=== PATIENT | male | born 1955 | race Caucasian/White ===

== ENCOUNTER 2020-05-21 13:22 | Outpatient (CLI) | payer OTHER, SELFPAY ==
--- NOTE | ~2020-05-21 | CT_ITS ---
EXAMINATION: CT lung screening EXAM DATE: 05/21/2020 13:59 INDICATION: Personal history of nicotine dependence. TECHNIQUE: Spiral low dose CT of the chest without contrast. Axial, coronal and sagittal images were reviewed. The dose-length product (DLP) for this examination was 100.51 mGy-cm. The exposure was t ailored according to patient size (auto mA exposure control), and iterative reconstruction (ASIR) was used as additional dose reduction technique. Comparison is made to prior examination from 04/22/2019 . FINDINGS: Apical reticulonodular opacities are unchanged consistent with postinfectious residua. No suspicious pulmonary nodules. Mild emphysema. Tracheobronchial tree is patent. There is no mediast inal, hilar or axillary lymphadenopathy. There are no pleural or pericardial effusions. There is no pneumothorax. Heart normal in size. No evidence of coronary arterial calcification. Upper abdo men is unremarkable. Subacute right 5th-8th rib fractures laterally. IMPRESSION: Lung-RADS category 2, benign appearance or behavior (<1% chance of malignancy); recommend continued LDCT screening in 1 year. Reviewed, dictated and finalized at location A. ENISHMENT MERCHANDISING ASSOCIATE
== END 2020-05-21 13:23 | disposition home or self-care (01) ==
PROVIDERS: PCP Family Medicine; Visit Provider Physician Assistant
DX: Z12.2 Encounter for screening for malignant neoplasm of respiratory organs (principal); Z87.891 Personal history of nicotine dependence
CPT/HCPCS: G0297

== ENCOUNTER 2022-06-01 07:14 | Outpatient (CLI) | payer MEDICARE, SELFPAY ==
--- NOTE | ~2022-06-01 | US_ITS ---
EXAMINATION: US aorta [facility] DATE: 06/01/2022 10:04 CIVIL ENGINEERING SPECIALIST INDICATION: Abdominal aortic aneurysm screening TECHNIQUE: Grayscale, color Doppler, and pulsed Doppler images of the aorta and common iliac arteries were obtained. COMPARISON: None. FINDINGS: The proximal aorta measures 2.6 cm greatest sagittal dimension. The mid aorta measures 2.2 cm greates t sagittal dimension. The distal aorta measures 2.4 cm greatest sagittal dimension. The right common internal iliac artery measures 1.2 cm. The left common iliac artery measures 1.1 cm. There is mild at herosclerosis. IMPRESSION: 1. Mild atherosclerosis of the aorta without evidence for aneurysm. Reviewed, dictated and finalized at location A. L ENGINEERING SPECIALIST
== END 2022-06-01 07:15 | disposition home or self-care (01) ==
PROVIDERS: PCP Family Medicine; Visit Provider Family Medicine
DX: Z13.6 Encounter for screening for cardiovascular disorders (principal); I70.0 Atherosclerosis of aorta
CPT/HCPCS: 76706

== ENCOUNTER 2022-06-26 12:33 | Emergency (ER) | payer MEDICARE, SELFPAY ==
--- NOTE | ~2022-06-26 | CT_ITS ---
EXAMINATION: CT brain wo con DATE: 06/26/2022 14:27 INDICATION: fall, HI . TECHNIQUE: Computed tomography (CT) of the head was performed as 6 intravenous contrast. The mA was a djusted according to patient size. Iterative reconstruction technique was employed. The dose-length p roduct was 605.33 mGy-cm. COMPARISON: None. FINDINGS: No acute intracranial hemorrhage or extra-axial fluid collection. No hydrocephalus, mass, or herniation. No acute ischemic infarct. Unremarkable dural venous sinus attenuation. No acute osseous abnormality. Right lateral scalp swelling including a large hematoma involving the r ight pinna with laceration. The aerated spaces are clear. IMPRESSION: No acute intracranial process. Right lateral scalp swelling, including a large right pinna hematoma a nd laceration. Reviewed, dictated and finalized at location K. EQUIPMENT SERVICE TECHNICIAN IMPRESSION: No acute intracranial process. Right lateral scalp swelling, including a large right pinna hematoma and laceration.
--- NOTE | ~2022-06-26 | CT_ITS ---
EXAMINATION: CT cervical spine wo con DATE: 06/26/2022 14:27 INDICATION: fall, HI TECHNIQUE: Computed tomography (CT) of the cervical spine was performed without intravenous contrast. Automated exposure control and iterative reconstruction technique were employed. The dose-length pro duct was 407.70 mGy-cm. COMPARISON: None. FINDINGS: Vertebral Body Alignment: Intact. . Craniocervical and atlantoaxial alignment: Moderate degenerative change. Alignment intact. Osseous structures/fracture: No evidence of a lytic or blastic process in the visualized spine. No e vidence of acute fracture. Small left mastoid effusion, with adjacent osseous sclerosis. No sign of t emporal bone fracture, no osseous erosion. Cervical soft tissues: The paraspinal soft tissues planes are maintained. Bilateral nodular apical pl eural scarring Degenerative changes: Multilevel moderate degenerative disc disease and facet arthropathy. Multilevel severe bilateral neural foraminal narrowing. Moderate central canal narrowing at C4-5. IMPRESSION: No acute fracture or traumatic malalignment in the cervical spine Reviewed, dictated and finalized at location K. RPRISE SYSTEMS ENGINEER
[2022-06-26 13:01] VITALS: BP 174/78; PULSE 100; RESP 18; TEMP 36.8; O2SAT 99
--- NOTE | 2022-06-26 14:56 | ECG_ITS ---
Measurements Intervals [place] Rate: 99 P: 83 PA: 130 QRS: 42 QRSD: 106 T: 80 QT: 364 QTc: 468 Interpretive Statements SINUS RHYTHM BASELINE ARTIFACT POSSIBLE LEFT ATRIAL ENLARGEMENT BORDERLINE ECG NO PREVIOUS ECG AVAILABLE FOR COMPARISON Electronically Signed On 06-27-2022 16:42:59 POWER OPERATOR by Morris Peter M.D.
--- NOTE | 2022-06-26 14:57 | ED.HEATRA ---
HPI - Head Injury General Chief complaint: Head Injury <REHAN Faith Last Filed: 06/26/22 19:54> Stated complaint: fall, head trauma <REHAN Faith Last Filed: 06/26/22 19:54> Time Seen by Provider: 06/26/22 13:13 <REHAN Faith Last Filed: 06/26/22 19:54> Source: patient and family <REHAN Faith Last Filed: 06/26/22 19:54> Mode of arrival: ambulatory <REHAN Faith Last Filed: 06/26/22 19:54> Limitations: no limitations <REHAN Faith Last Filed: 06/26/22 19:54> History of Present Illness HPI Narrative: Patient is a 66-year-old male who presents to the ED with report of a fall with head injury. Patient reports he fell last night and hit the right side of his head on the ground. He does not remember falling and does not know if he lost consciousness. He thinks he may have tripped on a electric cord. He does not remember feeling dizzy or lightheaded. Daughter at bedside reports when they came home last night, they found the patient on the ground. It is unclear how long he had been on the ground. They saw the electric space heater had been tipped over, which made him think he may have tripped. Daughter reported patient was able to ambulate normally and was coherent by the time they found him. He did require assistance getting off the ground. Patient admits to drinking ETOH last night. He is a daily 8-10 beer drinker. Patient has since developed swelling to his R ear. He states he otherwise feels fine currently. Denies current dizziness, lightheadedness, vision changes, hearing changes, chest pain, difficulty breathing. Denies neck pain or back pain. <REHAN Faith Last Filed: 06/26/22 19:54> Related Data Home medications: Home Medications Medication Instructions Recorded Confirmed omeprazole 20 mg capsule,delayed 20 mg PO DAILY 05/25/22 06/28/22 release <Amanda Ivey PA-C - Last Filed: 06/26/22 19:54> Allergies/Adverse reactions: Allergies Allergy/AdvReac Type Severity Reaction Status Date / Time No Known Allergies Allergy Verified 06/28/22 10:23 <Amanda Ivey PA-C - Last Filed: 06/26/22 19:54> Review of Systems Review of Systems: CONSTITUTIONAL: Denies fever, chills, or sweats. EYES: Denies visual changes. ENT: Reports swelling to R ear. Denies hearing changes. CARDIOVASCULAR: Denies chest pain. RESPIRATORY: Denies dyspnea. GASTROINTESTINAL: Denies abdominal pain, nausea, vomiting, or diarrhea. GENITOURINARY: Denies dysuria or hematuria. MUSCULOSKELETAL: Denies back pain, neck pain. NEUROLOGIC: Reports HI. Denies dizziness, lightheadedness, headache, numbness, or weakness. <Amanda Ivey PA-C - Last Filed: 06/26/22 19:54> All systems reviewed & are unremarkable except as noted in HPI and below <Amanda Ivey PA-C - Last Filed: 06/26/22 19:54> PMFSH Past Medical History Medical History: Medical History Bladder wall thickening Bladder wall thickening H/O poliomyelitis <Amanda Ivey PA-C - Last Filed: 06/26/22 19:54> Surgical History Surgical History: Surgical History (Updated 06/26/22 @ 15:50 by Amanda Ivey PA-C) No pertinent past surgical history <Amanda Ivey PA-C - Last Filed: 06/26/22 19:54> Family History Family History: Family History Mother Diabetes mellitus <Amanda Ivey PA-C - Last Filed: 06/26/22 19:54> Social History Social History: Social History (Updated 06/26/22 @ 19:32 by Amanda Ivey PA-C) Smoking packs per day: 1 Smoking cigarettes per day: 20.0 Years smoked: 42 Smoking pack-years: 42.00 Smoking status: Former smoker Tobacco type: e-cigarettes/vaping Smoking end date: 07/03/12 Alcohol i
[2022-06-26 15:18] LABS: Basophils Percent Auto 0.2 % (0.2-1.2); Hemoglobin 11.4 g/dL (14.0-18.0); Immature Granulocyte Absolute 0.03 K/mm3 (0.00-0.031); Immature Granulocyte Percent A 0.3 % (0-0.5); Lymphocytes Absolute Auto 0.35 K/mm3 (0.9-3.2); Lymphocytes Percent Auto 3.9 % (18.3-44.2); Mean Corpuscular HGB Conc 35.6 g/dl (32-36); Mean Corpuscular Volume 81.4 fl (80-100); Monocytes Percent Auto 11.4 % (2.6-8.5); Neutrophils Absolute Auto 7.5 K/mm3 (1.3-6.7); Neutrophils Percent Auto 84.2 % (45.5-73.1); Platelet Count Result 238 k/mm3 (150-375); Red Blood Count 3.93 M/mm3 (4.6-6.20); Red Cell Distribution Width 12.7 % (11.5-14.5)
[2022-06-26 15:41] LABS: Alanine Aminotransferase 98 U/L (6-50); Albumin Level 4.9 g/dL (3.5-5.1); Alkaline Phosphatase 93 U/L (38-126); Anion Gap 11 mmol/L (8-16); Aspartate Amino Transferase 122 U/L (17-59); Blood Urea Nitrogen 8 mg/dL (9-20); Calcium 9.1 mg/dL (8.4-10.2); Carbon Dioxide 24 mmol/L (22-30); Chloride 77 mmol/L (98-107); Estimated CRCL calculation 96 ml/min; Estimated Glomerular Filt Rate > 60; Glucose 102 mg/dL (65-110); Potassium 4.6 mmol/L (3.4-5.0); Sodium 112 mmol/L (137-145)
[2022-06-26 15:45] LABS: Troponin I < 0.012 ng/mL (0.000-0.034)
[2022-06-26 16:09] LABS: Ethanol < 10 mg/dL (<10)
[2022-06-26 16:11] LABS: Creatine Kinase 977 U/L (55-170)
[2022-06-26] MEDS: HYDROGEN PEROXIDE 3% SOLN(*SP) 473 ML BOTTLE (17:25)
== END 2022-06-26 17:50 | disposition left against medical advice (07) ==
PROVIDERS: Physician Assistant; Emergency Provider Emergency Medicine; PCP Family Medicine
DX: S09.90XA Unspecified injury of head, initial encounter (principal); F10.90 Alcohol use, unspecified, uncomplicated; Y90.0 Blood alcohol level of less than 20 mg/100 ml; S00.431A Contusion of right ear, initial encounter; M62.82 Rhabdomyolysis; W19.XXXA Unspecified fall, initial encounter
CPT/HCPCS: 36415; 70450; 72125; 80053; 80307; 82550; 84484; 85025; 93005; 99284; A9270

== ENCOUNTER 2022-06-28 10:47 | Outpatient (CLI) | payer MEDICARE, SELFPAY ==
[2022-06-28 11:25] LABS: Alanine Aminotransferase 83 U/L (6-50); Albumin Level 4.6 g/dL (3.5-5.1); Alkaline Phosphatase 86 U/L (38-126); Anion Gap 7 mmol/L (8-16); Aspartate Amino Transferase 94 U/L (17-59); Blood Urea Nitrogen 9 mg/dL (9-20); Carbon Dioxide 27 mmol/L (22-30); Chloride 90 mmol/L (98-107); Estimated Glomerular Filt Rate > 60; Glucose 116 mg/dL (65-110); Sodium 124 mmol/L (137-145)
== END 2022-06-28 10:48 | disposition home or self-care (01) ==
PROVIDERS: PCP Family Medicine; Visit Provider Physician Assistant
DX: E87.1 Hypo-osmolality and hyponatremia (principal)
CPT/HCPCS: 36415; 80053

== ENCOUNTER 2022-08-31 09:54 | Outpatient (CLI) | payer MEDICARE, SELFPAY ==
--- NOTE | ~2022-08-31 | US_ITS ---
US right upper quadrant INDICATION: Abnormal liver function tests PROCEDURE: Realtime right upper abdominal ultrasound. COMPARISON: No prior studies for comparison. FINDINGS: The pancreas is normal without focal mass or pancreatic ductal dilation. Liver echotexture is diffusely echogenic, consistent with fatty infiltration. There is normal directional flow in the portal vein. The gallbladder is normal without stones, gallbladder wall thickening or pericholecystic fluid. Comm on bile duct measures 3 mm. No sonographic Tavera's sign. IMPRESSION: 1: Hepatic steatosis. Reviewed, dictated and finalized at location B. CTOR LEARNING SERVICES IMPRESSION: 1: Hepatic steatosis.
== END 2022-08-31 09:55 | disposition home or self-care (01) ==
PROVIDERS: PCP Family Medicine; Visit Provider Physician Assistant
DX: R79.89 Other specified abnormal findings of blood chemistry (principal); Z78.9 Other specified health status; K76.0 Fatty (change of) liver, not elsewhere classified
CPT/HCPCS: 76705